=== PATIENT | female | born 1980 | race Caucasian/White ===

== ENCOUNTER 2020-12-05 06:06 | Emergency (ER) | payer MEDICARE, MEDICAID ==
[~2020-12-05] VITALS: Ht 162.6 cm; Wt 79.5 kg
[2020-12-05 06:19] VITALS: BP 127/73
--- NOTE | 2020-12-05 07:19 | NUR ---
PT HAD LARGE BM IN LOBBY OF ED AND ON FLOOR OF BATHROOM. PT CLEANED UP AND NEW CLOTHES GIVEN TO PT.
== END 2020-12-05 09:51 | disposition home or self-care (01) ==
LOC: ER 06:07
DX: K59.00 Constipation, unspecified (principal); R11.10 Vomiting, unspecified; Z90.89 Acquired absence of other organs; Z91.013 Allergy to seafood
CPT/HCPCS: 99283